=== PATIENT | female | born 1965 | race Caucasian/White ===

== ENCOUNTER → 2017-06-03 | Outpatient (CLI) | payer MEDICARE ==
--- NOTE | 2017-06-03 17:25 | US ---
EXAMINATION TYPE: US venous doppler duplex LE RT DATE OF EXAM: 06/03/2017 5:12 PM COMPARISON: NONE CLINICAL HISTORY: LBP M54.5, M79.661 Pain lower r leg,. SIDE PERFORMED: TECHNIQUE: The lower extremity deep venous system is examined utilizing real time linear array sonog renard with graded compression, doppler sonography and color-flow sonography. VESSELS IMAGED: External Iliac Vein (EIV) Common Femoral Vein Deep Femoral Vein Greater Saphenous Vein * Femoral Vein Popliteal Vein Small Saphenous Vein * Proximal Calf Veins (* superficial vessels) Grayscale, color doppler, spectral doppler imaging performed of the deep veins of the lower extremity . There is normal flow, compressibility, vascular waveforms. Right Leg: Negative for DVT IMPRESSION: No evidence for DVT.
== END | disposition home or self-care (01) ==
LOC: RADUSMAIN 16:49
PROVIDERS: ATTEND Neurological Surgery
DX: M79.661 Pain in right lower leg (principal); M79.89 Other specified soft tissue disorders; M48.06 Spinal stenosis, lumbar region; M54.16 Radiculopathy, lumbar region

== ENCOUNTER → 2017-06-03 | Outpatient (CLI) | payer MEDICARE ==
--- NOTE | 2017-06-03 07:03 | MR ---
EXAMINATION TYPE: MR lumbar spine wo con DATE OF EXAM: 06/03/2017 COMPARISON: Most recent MRI lumbar spine December 26, 2010. CT lumbar spine May 07, 2010. HISTORY: low back pain and spinal stenosis per order. Back pain since 2004 with history of 5 prior ba ck surgeries per patient, pain goes into right leg per patient. TECHNIQUE: Multiplanar, multisequence imaging of the lumbar spine is performed without IV contrast. FINDINGS: Sagittal images of the lumbar spine show vertebral body heights to remain satisfactory. The re is redemonstration of exaggerated lumbar lordosis. There is redemonstration of artifact from verte bral body fusion screw L4-S1 levels. 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 There are bilateral laminectomy defects and spinous process resection in the lower lumbar spi ne redemonstrated. No large recurrent posterior disc herniations are present on sagittal images. The disc space heights are maintained in the mid lumbar spine. The conus medullaris is normal in positio n and signal ending at superior L1 level. There is heterogeneous increased T1 and T2 signal consisten t with Modic type II degenerative change in the upper and lower lumbar spine. There is moderate multi level spurring in the upper and lower lumbar spine at sites of surgery. Axial images at T12-L1 level are nondiagnostic due to extensive blooming artifact. Axial images at L1-L2 level show extensive artifact from disc material and posterior fusion material. There are bilateral laminectomy defects and spinous process resection. Spinal canal is preserved. Bi lateral neural foramina are felt patent. Axial images at L2-L3 level show increasing moderate facet degenerative changes and ligamentum flavum hypertrophy with some effacement the posterior lateral thecal sac. There is broad disc bulge identif ied. Bilateral neural foramina remain patent. Axial images at L3-L4 level show bilateral laminectomy defects and spinous process resection. Spinal canal is preserved. Bilateral neural foramina are patent. Mild broad disc bulge is noted. Axial images at L4-L5 level redemonstrate posterior fluid collection possible seroma or pseudomeningo wyatt. There are bilateral laminectomy defects and spinous process resection. Spinal canal is preserve d. There is asymmetric mild to moderate left-sided neural foraminal narrowing. Right-sided neural for amen is patent. Axial images at L5-S1 level show artifact from surgical change. There is facet arthropathy. Spinal ca nal is small caliber at this level. There is moderate left-sided neural foraminal narrowing. Right-si ded neural foramen is patent. There is a 1.8 cm simple appearing cyst laterally in right kidney seen on current study not well seen on prior exams on axial image 28. Smaller central parapelvic cysts are felt present in the left kidn ey. IMPRESSION: Extensive postsurgical change near thoracolumbar junction and lumbosacral junction redemo nstrated. There are additional multilevel degenerative changes throughout the lumbar spine. There is no significant new finding since 2011 MRI to account for patient's persistent symptoms.
== END | disposition home or self-care (01) ==
LOC: RADUSMAIN 05:55
PROVIDERS: ATTEND Neurological Surgery
DX: M47.816 Spondylosis without myelopathy or radiculopathy, lumbar region (principal); M79.89 Other specified soft tissue disorders; Z98.890 Other specified postprocedural states
CPT/HCPCS: 72148